=== PATIENT | male | born 1970 | race African-American/Black ===

== ENCOUNTER 2018-03-13 23:31 | Inpatient (IN) | payer SELFPAY ==
[2018-03-13 23:31] VITALS: O2SAT 100
[~2018-03-13 23:31] MED LIST: Z.0.NO CURRENT MEDS
[2018-03-13] MEDS ORDERED: ETOMIDATE 20 MG/10 ML VIAL ONE (23:37)
[2018-03-13] MEDS ORDERED: PROPOFOL 1000 MG/100 ML INJ 100 ML ONE (23:40)
[2018-03-13 23:45] VITALS: O2SAT 100
[2018-03-13 23:53] LABS: AUTOMATED NEUTROPHIL # 2.6 TH/MM3 (1.8-7.7); BASOPHIL % 0.8 % (0.0-2.0); EOSINOPHIL # 0.2 TH/MM3 (0-0.4); EOSINOPHIL % 2.8 % (0.0-4.0); HEMATOCRIT 43.2 % (39.0-51.0); HEMOGLOBIN 14.5 GM/DL (13.0-17.0); LYMPH % 51.4 % (9.0-44.0); LYMPHOCYTE # 3.4 TH/MM3 (1.0-4.8); MEAN CELL VOLUME 96.1 FL (80.0-100.0); MEAN CORPUSCULAR HEMOGLOBIN 32.3 PG (27.0-34.0); MEAN CORPUSCULAR HGB CONC 33.7 % (32.0-36.0); MEAN PLATELET VOLUME 7.3 FL (7.0-11.0); MONOCYTE # 0.3 TH/MM3 (0-0.9); PLATELET COUNT 224 TH/MM3 (150-450); RED BLOOD COUNT 4.49 MIL/MM3 (4.50-5.90); WHITE BLOOD COUNT 6.6 TH/MM3 (4.0-11.0)
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
[2018-03-14] VITALS (21 sets, daily range): BP systolic 115–129; BP diastolic 68–78; PULSE 79–92; RESP 16–23; TEMP 99.3–100.9; O2SAT 96–100
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
[2018-03-14] MEDS ORDERED: IOHEXOL 350 MG/ML 10 ML VIAL (for RAD DIAG) IVCONTRAST ONE (00:07)
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
--- NOTE | 2018-03-14 00:11 | RADRPT ---
EXAM DATE/TIME: 03/13/2018 23:33 [facility] COMPARISON: No previous studies available for comparison. INDICATIONS : Post intubation MEDICAL HISTORY : Unobtainable SURGICAL HISTORY : Unobtainable ENCOUNTER: Initial ACUITY: 1 day PAIN SCORE: Non-responsive. LOCATION: Bilateral chest FINDINGS: A single view of the chest demonstrates the lungs to be symmetrically aerated without evidence of mas s, infiltrate or effusion. Endotracheal tube 6 cm above the roger. The cardiomediastinal contours a re unremarkable. Osseous structures are intact. CONCLUSION: No acute disease. Endotracheal tube 6 cm above the roger. Rohit Tabares MD on March 14, 2018 at 0:09 Board Certified Radiologist. This report was verified electronically.
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
[2018-03-14] MEDS ORDERED: ENALAPRILAT 1.25 MG/ML VIAL IV PUSH PRN (00:15)
[2018-03-14] MEDS ORDERED: SODIUM CHLORIDE 0.9% FLUSH 10 ML FLUSH IV FLUSH PRN (00:15)
[2018-03-14] MEDS ORDERED: MAGNESIUM HYDROXIDE SUSP 30 ML CUP PO PRN (00:15)
[2018-03-14] MEDS ORDERED: NURSING INFORMATION XX SCH (00:15)
[2018-03-14] MEDS ORDERED: CHLORHEXIDINE GLUCONATE 2 % 1 PACK (2 CLOTHS) TOP PRN (00:15)
[2018-03-14] MEDS ORDERED: ONDANSETRON HCL 4 MG/2 ML VIAL IV PUSH PRN (00:15)
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
[2018-03-14] MEDS: SODIUM CHLOR 0.9% 1000 ML INJ 1,000 ML IV SCH ×3 (01:25→20:15)
[2018-03-14] MEDS ORDERED: fentaNYL DRIP 250 ML IV PRN (01:30)
[2018-03-14] MEDS ORDERED: NEED HT & WT SCH (01:30)
[2018-03-14] MEDS ORDERED: PROPOFOL 1000 MG/100 ML INJ 100 ML IV PRN (01:30)
[2018-03-14] MEDS ORDERED: fentaNYL 2,500 MCG/NS 250 ML IV PRN (01:45)
[2018-03-14] MEDS: PANTOPRAZOLE SODIUM 40 MG VIAL IVP SCH (01:54)
[2018-03-14] MEDS: levETIRAcetam INJ 500 MG in SODIUM CHLORIDE 0.9% INJ 100 ML IV SCH ×3 (01:55→22:03)
[2018-03-14] MEDS: CHLORHEXIDINE GLUCONATE 2 % 1 PACK (2 CLOTHS) TOP SCH (03:19)
[2018-03-14] MEDS: MULTIVITAMIN INJ 10 ML, THIAMINE INJ 100 MG, FOLIC ACID INJ 1 MG in SODIUM CHLORID 0.9%... IV SCH (03:19)
[2018-03-14] MEDS: PROPOFOL 1000 MG/100 ML IV PRN ×3 (07:00→22:03)
[2018-03-14] MEDS ORDERED: POTASSIUM PHOSPHATE MONOBASIC 500 MG TAB PO PRN (07:15)
[2018-03-14] MEDS ORDERED: POTASSIUM PHOSPHATE INJ 30 MMOL in SODIUM CHLOR 0.9% 250 ML INJ 250 ML IV PRN (07:15)
[2018-03-14] MEDS ORDERED: RESP: ALBUTEROL 2.5 MG/IPRATROPIUM 0.5 MG NEB (PRN) NEB (07:15)
[2018-03-14] MEDS ORDERED: MAGNESIUM SULFATE INJ 4 GM in SODIUM CHLORIDE 0.9% INJ 92 ML IV PRN (07:15)
[2018-03-14] MEDS ORDERED: SODIUM PHOSPHATE INJ 30 MMOL in SODIUM CHLOR 0.9% 250 ML INJ 240 ML IV PRN (07:15)
[2018-03-14] MEDS ORDERED: MAGNESIUM OXIDE 400 MG TAB PO PRN (07:15)
[2018-03-14] MEDS ORDERED: POTASSIUM CHLORIDE 25 MEQ EFFERVESCENT TAB PO PRN ×2 (07:15)
[2018-03-14] MEDS ORDERED: MAGNESIUM SULFATE INJ 2 GM in SODIUM CHLORIDE 0.9% INJ 96 ML IV PRN (07:15)
[2018-03-14] MEDS ORDERED: POTASSIUM CHLOR 40 MEQ PREMIX 100 ML IV PRN ×2 (07:15)
[2018-03-14] MEDS ORDERED: POTASSIUM PHOSPHATE MONOBASIC 500 MG TAB PO/TUBE PRN (07:15)
[2018-03-14] MEDS ORDERED: POTASSIUM CHLOR 20 MEQ PREMIX 100 ML IV PRN ×2 (07:15)
[2018-03-14] MEDS: CHLORHEXIDINE 0.12% (ORAL KIT) 15 ML CUP MT SCH ×2 (08:00→20:00)
[2018-03-14] MEDS: RESP: ALBUTEROL 2.5 MG/IPRATROPIUM 0.5 MG NEB (SCH) NEB ×3 (08:26→20:44)
[2018-03-14] MEDS: DOCUSATE SODIUM 50 MG/SENNA 8.6 MG TAB PO SCH ×2 (09:01→22:04)
[2018-03-14] MEDS: LIDOCAINE HCL 5% PATCH T-DERMAL SCH (09:02)
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
--- NOTE | 2018-03-14 10:17 | RADRPT ---
EXAM DATE/TIME: 03/14/2018 09:57 [facility] COMPARISON: CT BRAIN W/O CONTRAST, March 13, 2018, 23:35. INDICATIONS : Evaluate bleed RADIATION DOSE: 42.39 CTDIvol (mGy) MEDICAL HISTORY : None SURGICAL HISTORY : None. ENCOUNTER: Initial ACUITY: 1 day PAIN SCALE: Non-responsive LOCATION: cranial TECHNIQUE: Multiple contiguous axial images were obtained of the head. Using automated exposure control and adj ustment of the mA and/or kV according to patient size, radiation dose was kept as low as reasonably a chievable to obtain optimal diagnostic quality images. DICOM format image data is available electro nically for review and comparison. FINDINGS: CEREBRUM: There is some scattered areas of stable subarachnoid hemorrhage. Small left frontal subdural measurin g 5 mm unchanged . The ventricles are normal for age. No evidence of midline shift, mass lesion, he morrhage or acute infarction. No extra-axial fluid collections are seen. POSTERIOR FOSSA: The cerebellum and brainstem are intact. The 4th ventricle is midline. The cerebellopontine angle i s unremarkable. EXTRACRANIAL: The visualized portion of the orbits is intact. SKULL: The calvaria is intact. Stable sagittal occipital bone fracture. CONCLUSION: Stable areas of subarachnoid and a small left frontal subdural hematoma. No new hemorrhage is seen. Mono Calderón MD on March 14, 2018 at 10:13 Board Certified Radiologist. This report was verified electronically.
--- NOTE | 2018-03-14 10:19 | RADRPT ---
EXAM DATE/TIME: 03/14/2018 09:57 [facility] COMPARISON: CT ABDOMEN & PELVIS W CONTRAST, March 13, 2018, 23:35. INDICATIONS : Follow up on the pneumothorax. MEDICAL HISTORY : Unobtainable. SURGICAL HISTORY : Unobtainable. ENCOUNTER: Subsequent ACUITY: 1 day PAIN SCORE: Non-responsive. LOCATION: Bilateral chest FINDINGS: A single view of the chest demonstrates the endotracheal tube and nasogastric good position. Small le ft-sided pneumothorax with extensive subcutaneous air is noted.. The cardiomediastinal contours are unremarkable. There are innumerable left-sided rib fractures.. CONCLUSION: Left chest wall with subcutaneous air. Small left pneumothorax anteriorly. ET tube and NG tube in goo d position.. Mono Calderón MD on March 14, 2018 at 10:16 Board Certified Radiologist. This report was verified electronically.
[2018-03-14] MEDS: METHOCARBAMOL 500 MG TAB PO SCH ×2 (14:27→22:03)
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
[2018-03-15] VITALS (17 sets, daily range): BP systolic 114–156; BP diastolic 68–82; PULSE 73–100; RESP 16–28; TEMP 100–101.6; O2SAT 88–100
[2018-03-15] MEDS: PANTOPRAZOLE SODIUM 40 MG VIAL IVP SCH (00:15)
[2018-03-15] MEDS: PROPOFOL 1000 MG/100 ML IV PRN ×2 (02:25→07:05)
[2018-03-15] MEDS: RESP: ALBUTEROL 2.5 MG/IPRATROPIUM 0.5 MG NEB (SCH) NEB ×4 (03:02→20:53)
[2018-03-15] MEDS: CHLORHEXIDINE GLUCONATE 2 % 1 PACK (2 CLOTHS) TOP SCH (04:00)
[2018-03-15] MEDS: MULTIVITAMIN INJ 10 ML, THIAMINE INJ 100 MG, FOLIC ACID INJ 1 MG in SODIUM CHLORID 0.9%... IV SCH (04:29)
--- NOTE | 2018-03-15 04:48 | RADRPT ---
EXAM DATE/TIME: 03/15/2018 03:12 [facility] COMPARISON: CHEST SINGLE AP, March 14, 2018, 9:57. INDICATIONS : Follow up on the pneumothorax. MEDICAL HISTORY : Unobtainable. SURGICAL HISTORY : Unobtainable. ENCOUNTER: Subsequent ACUITY: 2 days PAIN SCORE: Non-responsive. LOCATION: Bilateral chest FINDINGS: Small left upper chest pneumothorax is 5 mm. No evidence of anterior pneumothorax on today's exam. Prominent subcutaneous emphysema about the left chest wall adjacent to multiple rib fractures similar to prior. There is persisting consolidation in the left lower lung with loss of delineation of the medial left hemidiaphragm. The right lung is clear. ET tube tip well above the roger. Gastric tub e traverses the [id number]. CONCLUSION: Residual 5 mm left upper chest pneumothorax. Persistent consolidation left lower lung. Maged Lucero MD on March 15, 2018 at 4:44 Board Certified Radiologist. This report was verified electronically.
[2018-03-15 05:48] LABS: ALBUMIN 3.2 GM/DL (3.4-5.0); BICARBONATE 26.3 MEQ/L (21.0-32.0); BLOOD UREA NITROGEN 11 MG/DL (7-18); CALCIUM 8.6 MG/DL (8.5-10.1); CHLORIDE 109 MEQ/L (98-107); CREATININE 1.08 MG/DL (0.60-1.30); GLOMERULAR FILTRATION RATE 89 ML/MIN (>89); GLUCOSE,RANDOM 113 MG/DL (74-106); SODIUM (NA) 143 MEQ/L (136-145)
[2018-03-15 05:50] LABS: ALT (GPT) 34 U/L (12-78); AST (GOT) 62 U/L (15-37)
[2018-03-15 05:52] LABS: ALKALINE PHOSPHATASE 69 U/L (45-117); TOTAL PROTEIN 6.6 GM/DL (6.4-8.2)
[2018-03-15] MEDS: METHOCARBAMOL 500 MG TAB PO SCH ×3 (06:00→20:24)
[2018-03-15] MEDS: SODIUM CHLOR 0.9% 1000 ML INJ 1,000 ML IV SCH ×2 (06:15→16:15)
[2018-03-15] MEDS: ACETAMINOPHEN 325 MG TAB NG PRN (07:05)
[2018-03-15] MEDS: CHLORHEXIDINE 0.12% (ORAL KIT) 15 ML CUP MT SCH ×2 (08:00→20:25)
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
[2018-03-15] MEDS: LIDOCAINE HCL 5% PATCH T-DERMAL SCH (08:56)
[2018-03-15] MEDS: DOCUSATE SODIUM 50 MG/SENNA 8.6 MG TAB PO SCH ×2 (08:56→20:24)
[2018-03-15] MEDS: MAGNESIUM HYDROXIDE SUSP 30 ML CUP PO SCH ×2 (08:56→20:23)
[2018-03-15] MEDS: levETIRAcetam INJ 500 MG in SODIUM CHLORIDE 0.9% INJ 100 ML IV SCH ×2 (08:56→20:23)
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
--- NOTE | 2018-03-15 09:26 | RADRPT ---
EXAM DATE/TIME: 03/15/2018 08:32 [facility] COMPARISON: No previous studies available for comparison. INDICATIONS : Swelling. MEDICAL HISTORY : Unobtainable. SURGICAL HISTORY : Unobtainable. ENCOUNTER: Initial ACUITY: 2 days PAIN SCORE: Non-responsive. LOCATION: Right Ankle. FINDINGS: Three view exam was performed of the right ankle. There is a transverse fracture of the medial malleo aimee at the level of the tibiotalar joint. It is minimally displaced. CONCLUSION: Transverse fracture at the base of the medial malleolus. Mono Calderón MD on March 15, 2018 at 9:22 Board Certified Radiologist. This report was verified electronically.
--- NOTE | 2018-03-15 09:28 | RADRPT ---
EXAM DATE/TIME: 03/15/2018 08:38 [facility] COMPARISON: No previous studies available for comparison. INDICATIONS : Swelling. MEDICAL HISTORY : Unobtainable. SURGICAL HISTORY : Unobtainable. ENCOUNTER: Initial ACUITY: 2 days PAIN SCORE: Non-responsive. LOCATION: Right Foot. FINDINGS: Three view examination of the right foot demonstrates no soft tissue swelling, dislocation, or fractu re. The tarsal bones appear intact. The interphalangeal and metatarsophalangeal joints are intact. The calcaneus is intact. Bony mineralization is normal. CONCLUSION: Unremarkable examination of the right foot. Mono Calderón MD on March 15, 2018 at 9:25 Board Certified Radiologist. This report was verified electronically.
[2018-03-15 09:59] LABS: HEMATOCRIT 33.5 % (39.0-51.0); HEMOGLOBIN 11.3 GM/DL (13.0-17.0); MEAN CELL VOLUME 95.3 FL (80.0-100.0); MEAN CORPUSCULAR HEMOGLOBIN 32.1 PG (27.0-34.0); MEAN CORPUSCULAR HGB CONC 33.7 % (32.0-36.0); MEAN PLATELET VOLUME 7.6 FL (7.0-11.0); PLATELET COUNT 148 TH/MM3 (150-450); RED BLOOD COUNT 3.51 MIL/MM3 (4.50-5.90); RED CELL DISTRIBUTION WIDTH 13.8 % (11.6-17.2); WHITE BLOOD COUNT 7.9 TH/MM3 (4.0-11.0)
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
[2018-03-15] MEDS: ACETAMINOPHEN 1000 MG/100 ML 100 ML IV PRN (20:22)
[2018-03-16] VITALS (11 sets, daily range): BP systolic 124–157; BP diastolic 61–85; PULSE 70–107; RESP 27–29; TEMP 99.9–102.4; O2SAT 94–100
[2018-03-16] MEDS: PANTOPRAZOLE SODIUM 40 MG VIAL IVP SCH (00:21)
[2018-03-16] MEDS: MULTIVITAMIN INJ 10 ML, THIAMINE INJ 100 MG, FOLIC ACID INJ 1 MG in SODIUM CHLORID 0.9%... IV SCH (02:12)
[2018-03-16] MEDS: SODIUM CHLOR 0.9% 1000 ML INJ 1,000 ML IV SCH ×2 (02:12→17:35)
[2018-03-16] MEDS: RESP: ALBUTEROL 2.5 MG/IPRATROPIUM 0.5 MG NEB (SCH) NEB ×3 (03:22→21:44)
[2018-03-16] MEDS: CHLORHEXIDINE GLUCONATE 2 % 1 PACK (2 CLOTHS) TOP SCH (03:49)
[2018-03-16] MEDS: ACETAMINOPHEN 1000 MG/100 ML 100 ML IV PRN ×3 (03:50→16:33)
--- NOTE | 2018-03-16 04:39 | RADRPT ---
EXAM DATE/TIME: 03/16/2018 03:24 [facility] COMPARISON: CHEST SINGLE AP, March 15, 2018, 3:12. INDICATIONS : Follow up on the pneumothorax. MEDICAL HISTORY : Unobtainable. SURGICAL HISTORY : Unobtainable. ENCOUNTER: Subsequent ACUITY: 4 - 6 days PAIN SCORE: Non-responsive. LOCATION: Bilateral chest FINDINGS: There are increasing bilateral lower lung consolidative infiltrates, now with loss of delineation of both hemidiaphragms. The upper lungs remain clear. No pleural reflection is seen in the left upper chest. Persistent subcutaneous emphysema about the lateral left chest wall. CONCLUSION: 1. No pneumothorax seen on this supine view. 2. Increasing bilateral lower lung consolidation.. Maged Lucero MD on March 16, 2018 at 4:35 Board Certified Radiologist. This report was verified electronically.
[2018-03-16 04:50] LABS: AUTOMATED NEUTROPHIL # 5.5 TH/MM3 (1.8-7.7); BASOPHIL % 0.2 % (0.0-2.0); EOSINOPHIL % 0.1 % (0.0-4.0); HEMOGLOBIN 11.1 GM/DL (13.0-17.0); LYMPH % 10.5 % (9.0-44.0); LYMPHOCYTE # 0.7 TH/MM3 (1.0-4.8); MEAN CORPUSCULAR HGB CONC 34.7 % (32.0-36.0); MEAN PLATELET VOLUME 8.4 FL (7.0-11.0); MONOCYTE # 0.3 TH/MM3 (0-0.9); NEUT % 84.2 % (16.0-70.0); PLATELET COUNT 135 TH/MM3 (150-450); RED BLOOD COUNT 3.37 MIL/MM3 (4.50-5.90); RED CELL DISTRIBUTION WIDTH 13.7 % (11.6-17.2); WHITE BLOOD COUNT 6.6 TH/MM3 (4.0-11.0)
[2018-03-16 05:19] LABS: ALBUMIN 2.6 GM/DL (3.4-5.0); AST (GOT) 71 U/L (15-37); BICARBONATE 23.9 MEQ/L (21.0-32.0); BLOOD UREA NITROGEN 10 MG/DL (7-18); CALCIUM 8.5 MG/DL (8.5-10.1); CHLORIDE 110 MEQ/L (98-107); CREATININE 1.17 MG/DL (0.60-1.30); GLOMERULAR FILTRATION RATE 81 ML/MIN (>89); GLUCOSE,RANDOM 116 MG/DL (74-106); SODIUM (NA) 143 MEQ/L (136-145)
[2018-03-16 05:22] LABS: ALKALINE PHOSPHATASE 65 U/L (45-117); ALT (GPT) 31 U/L (12-78); TOTAL PROTEIN 6.3 GM/DL (6.4-8.2)
[2018-03-16] MEDS: METHOCARBAMOL 500 MG TAB PO SCH ×3 (06:00→21:54)
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
[2018-03-16] MEDS ORDERED: MORPHINE SULFATE 2 MG/ML SYRINGE IV PUSH PRN (09:00)
[2018-03-16] MEDS: MAGNESIUM HYDROXIDE SUSP 30 ML CUP PO SCH ×2 (09:00→21:00)
[2018-03-16] MEDS: LIDOCAINE HCL 5% PATCH T-DERMAL SCH (09:36)
[2018-03-16] MEDS: levETIRAcetam INJ 500 MG in SODIUM CHLORIDE 0.9% INJ 100 ML IV SCH ×2 (09:36→21:54)
[2018-03-16] MEDS: DOCUSATE SODIUM 50 MG/SENNA 8.6 MG TAB PO SCH ×2 (10:31→21:54)
[2018-03-17] VITALS (14 sets, daily range): BP systolic 133–165; BP diastolic 72–91; PULSE 73–92; RESP 18–29; TEMP 98.5–101.7; O2SAT 94–100
[2018-03-17] MEDS: PANTOPRAZOLE SODIUM 40 MG VIAL IVP SCH (00:16)
[2018-03-17] MEDS: SODIUM CHLOR 0.9% 1000 ML INJ 1,000 ML IV SCH (00:16)
[2018-03-17] MEDS: ACETAMINOPHEN 1000 MG/100 ML 100 ML IV PRN ×3 (03:01→18:41)
[2018-03-17] MEDS: RESP: ALBUTEROL 2.5 MG/IPRATROPIUM 0.5 MG NEB (SCH) NEB ×4 (03:40→21:12)
[2018-03-17] MEDS: CHLORHEXIDINE GLUCONATE 2 % 1 PACK (2 CLOTHS) TOP SCH (04:00)
[2018-03-17 04:27] LABS: AUTOMATED NEUTROPHIL # 7.7 TH/MM3 (1.8-7.7); BASOPHIL % 0.2 % (0.0-2.0); HEMATOCRIT 31.7 % (39.0-51.0); HEMOGLOBIN 10.9 GM/DL (13.0-17.0); LYMPH % 7.4 % (9.0-44.0); LYMPHOCYTE # 0.7 TH/MM3 (1.0-4.8); MEAN CELL VOLUME 93.8 FL (80.0-100.0); MEAN CORPUSCULAR HEMOGLOBIN 32.2 PG (27.0-34.0); MEAN CORPUSCULAR HGB CONC 34.3 % (32.0-36.0); MEAN PLATELET VOLUME 8.2 FL (7.0-11.0); MONO % 5.4 % (0.0-8.0); MONOCYTE # 0.5 TH/MM3 (0-0.9); PLATELET COUNT 165 TH/MM3 (150-450); RED BLOOD COUNT 3.37 MIL/MM3 (4.50-5.90); RED CELL DISTRIBUTION WIDTH 13.4 % (11.6-17.2); WHITE BLOOD COUNT 8.8 TH/MM3 (4.0-11.0)
[2018-03-17 04:51] LABS: ALBUMIN 2.2 GM/DL (3.4-5.0); ALT (GPT) 26 U/L (12-78); AST (GOT) 46 U/L (15-37); BICARBONATE 22.3 MEQ/L (21.0-32.0); BLOOD UREA NITROGEN 12 MG/DL (7-18); CALCIUM 8.3 MG/DL (8.5-10.1); CHLORIDE 111 MEQ/L (98-107); CREATININE 1.08 MG/DL (0.60-1.30); GLOMERULAR FILTRATION RATE 89 ML/MIN (>89); GLUCOSE,RANDOM 117 MG/DL (74-106); SODIUM (NA) 143 MEQ/L (136-145)
[2018-03-17 04:54] LABS: ALKALINE PHOSPHATASE 68 U/L (45-117); TOTAL BILIRUBIN ADULT 0.9 MG/DL (0.2-1.0); TOTAL PROTEIN 6.3 GM/DL (6.4-8.2)
--- NOTE | 2018-03-17 05:01 | RADRPT ---
EXAM DATE/TIME: 03/17/2018 03:09 [facility] COMPARISON: CHEST SINGLE AP, March 16, 2018, 3:24. INDICATIONS : Shortness of breath. MEDICAL HISTORY : Non-responsive SURGICAL HISTORY : Non-responsive ENCOUNTER: Subsequent ACUITY: 4 - 6 days PAIN SCORE: Non-responsive. LOCATION: Bilateral chest FINDINGS: There is persistent consolidation in the left lower lobe, slightly smaller than on prior exam. Persi stent hazy opacity right mid and lower lung the possibility of right hemidiaphragm. No pneumothorax seen. Stable subcutaneous emphysema about the left chest wall and stable left lateral rib fractures. CONCLUSION: Consolidation left lower lung is slightly smaller than prior. Persistent hazy opacity in the right h emithorax, stable. Maged Lucero MD on March 17, 2018 at 4:57 Board Certified Radiologist. This report was verified electronically.
[2018-03-17] MEDS: METHOCARBAMOL 500 MG TAB PO SCH ×3 (05:40→22:19)
[2018-03-17] MEDS: MAGNESIUM HYDROXIDE SUSP 30 ML CUP PO SCH ×2 (08:30→19:50)
[2018-03-17] MEDS: DOCUSATE SODIUM 50 MG/SENNA 8.6 MG TAB PO SCH ×2 (08:30→19:50)
[2018-03-17] MEDS: LIDOCAINE HCL 5% PATCH T-DERMAL SCH (08:30)
[2018-03-17] MEDS: levETIRAcetam INJ 500 MG in SODIUM CHLORIDE 0.9% INJ 100 ML IV SCH ×2 (08:30→19:49)
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
[2018-03-18] VITALS (7 sets, daily range): BP systolic 131–144; BP diastolic 70–85; PULSE 87–95; RESP 22–34; TEMP 97.9–101.3; O2SAT 92–95
[2018-03-18] MEDS: PANTOPRAZOLE SODIUM 40 MG VIAL IVP SCH (00:32)
[2018-03-18] MEDS: RESP: ALBUTEROL 2.5 MG/IPRATROPIUM 0.5 MG NEB (SCH) NEB ×2 (03:23→09:38)
[2018-03-18] MEDS: CHLORHEXIDINE GLUCONATE 2 % 1 PACK (2 CLOTHS) TOP SCH (03:26)
[2018-03-18] MEDS: METHOCARBAMOL 500 MG TAB PO SCH ×3 (05:29→22:55)
[2018-03-18] MEDS ORDERED: LACTULOSE SYRUP 20 GM/30 ML CUP PO ONE (07:30)
[2018-03-18 07:57] LABS: AUTOMATED NEUTROPHIL # 9.4 TH/MM3 (1.8-7.7); BASOPHIL % 0.3 % (0.0-2.0); EOSINOPHIL % 0.4 % (0.0-4.0); HEMATOCRIT 32.1 % (39.0-51.0); HEMOGLOBIN 10.9 GM/DL (13.0-17.0); LYMPH % 6.6 % (9.0-44.0); LYMPHOCYTE # 0.7 TH/MM3 (1.0-4.8); MEAN CELL VOLUME 93.6 FL (80.0-100.0); MEAN CORPUSCULAR HEMOGLOBIN 31.8 PG (27.0-34.0); MEAN PLATELET VOLUME 7.9 FL (7.0-11.0); MONO % 8.2 % (0.0-8.0); MONOCYTE # 0.9 TH/MM3 (0-0.9); NEUT % 84.5 % (16.0-70.0); PLATELET COUNT 213 TH/MM3 (150-450); RED BLOOD COUNT 3.43 MIL/MM3 (4.50-5.90); RED CELL DISTRIBUTION WIDTH 13.7 % (11.6-17.2); WHITE BLOOD COUNT 11.1 TH/MM3 (4.0-11.0)
[2018-03-18] MEDS: MAGNESIUM HYDROXIDE SUSP 30 ML CUP PO SCH ×2 (08:10→21:00)
[2018-03-18] MEDS: levETIRAcetam 500 MG TAB PO SCH ×2 (08:10→22:56)
[2018-03-18] MEDS: DOCUSATE SODIUM 50 MG/SENNA 8.6 MG TAB PO SCH ×2 (08:10→21:00)
[2018-03-18] MEDS: ACETAMINOPHEN 325 MG TAB NG PRN ×2 (08:10→15:40)
[2018-03-18] MEDS: FAMOTIDINE 20 MG TAB PO SCH ×2 (08:10→22:55)
[2018-03-18] MEDS: LIDOCAINE HCL 5% PATCH T-DERMAL SCH (08:11)
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
[2018-03-18 08:19] LABS: ALBUMIN 2.2 GM/DL (3.4-5.0); ALT (GPT) 28 U/L (12-78); AST (GOT) 37 U/L (15-37); BICARBONATE 22.9 MEQ/L (21.0-32.0); BLOOD UREA NITROGEN 16 MG/DL (7-18); CALCIUM 8.7 MG/DL (8.5-10.1); CHLORIDE 107 MEQ/L (98-107); CREATININE 1.18 MG/DL (0.60-1.30); GLOMERULAR FILTRATION RATE 80 ML/MIN (>89); GLUCOSE,RANDOM 87 MG/DL (74-106); SODIUM (NA) 140 MEQ/L (136-145)
[2018-03-18 08:21] LABS: ALKALINE PHOSPHATASE 80 U/L (45-117); TOTAL BILIRUBIN ADULT 0.8 MG/DL (0.2-1.0); TOTAL PROTEIN 6.8 GM/DL (6.4-8.2)
[2018-03-18] MEDS: QUEtiapine FUMARATE 25 MG TAB PO SCH ×2 (11:47→22:56)
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
[2018-03-19] VITALS (7 sets, daily range): BP systolic 109–145; BP diastolic 36–81; PULSE 92–103; RESP 19–20; TEMP 98.4–101.4; O2SAT 94–95
[2018-03-19] MEDS: ACETAMINOPHEN 325 MG TAB NG PRN ×2 (05:06→23:27)
[2018-03-19] MEDS: METHOCARBAMOL 500 MG TAB PO SCH ×3 (06:09→21:45)
[2018-03-19] MEDS: MAGNESIUM HYDROXIDE SUSP 30 ML CUP PO SCH ×2 (08:05→21:00)
[2018-03-19] MEDS: LIDOCAINE HCL 5% PATCH T-DERMAL SCH (08:06)
[2018-03-19] MEDS: levETIRAcetam 500 MG TAB PO SCH (08:06)
[2018-03-19] MEDS: QUEtiapine FUMARATE 25 MG TAB PO SCH ×2 (08:06→21:44)
[2018-03-19] MEDS: DOCUSATE SODIUM 50 MG/SENNA 8.6 MG TAB PO SCH ×2 (08:06→21:00)
[2018-03-19] MEDS: FAMOTIDINE 20 MG TAB PO SCH ×2 (08:06→21:44)
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
[2018-03-19] MEDS: ENOXAPARIN SODIUM 40 MG/0.4 ML SYRINGE SQ SCH (08:51)
--- NOTE | 2018-03-19 09:11 | RADRPT ---
EXAM DATE/TIME: 03/19/2018 08:40 [place] COMPARISON: CHEST SINGLE AP, March 17, 2018, 3:09. INDICATIONS : Short of breath, pulmonary contusion MEDICAL HISTORY : subdural and subarachnoid hemorrhage, occipital bone fracture SURGICAL HISTORY : Craniotomy. ENCOUNTER: Subsequent ACUITY: 4 - 6 days PAIN SCORE: Non-responsive. LOCATION: Bilateral chest FINDINGS: The heart size is within normal image. There is hazy density seen at the lower lungs bilaterally. The mid and upper lungs are grossly clear. There is minimal residual left subcutaneous emphysema. Lower left rib fractures are seen. CONCLUSION: 1. Bibasilar areas of consolidation or atelectasis which appear to be improving. 2. Improving subcutaneous emphysema in the left side. 3. Left rib fractures. Champ Irby MD on March 19, 2018 at 9:08 Board Certified Radiologist. This report was verified electronically.
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
[2018-03-19 12:46] LABS: BILIRUBIN, URINE NEG (NEG); BLOOD, URINE NEG (NEG); GLUCOSE,URINE NEG (NEG); KETONE, URINE NEG (NEG); MUCUS URINE FEW /lpf (OCC); NITRITE,URINE NEG (NEG); PH, URINE 6.5 (5.0-8.5); URINE COLOR YELLOW (YELLW/STRAW); URINE LEUKOCYTE ESTERASE NEG (NEG)
[2018-03-20] VITALS: BP 130/61; PULSE 86; RESP 19; TEMP 101; O2SAT 95
[2018-03-20 04:00] VITALS: TEMP 101.3
[2018-03-20] MEDS: METHOCARBAMOL 500 MG TAB PO SCH ×3 (05:59→21:09)
[2018-03-20] MEDS: ACETAMINOPHEN 325 MG TAB NG PRN ×2 (05:59→17:38)
[2018-03-20 08:00] VITALS: BP 136/70; PULSE 78; RESP 18; TEMP 99.8; O2SAT 93
[2018-03-20 08:50] LABS: AUTOMATED NEUTROPHIL # 10.8 TH/MM3 (1.8-7.7); BASOPHIL # 0.1 TH/MM3 (0-0.2); BASOPHIL % 0.6 % (0.0-2.0); EOSINOPHIL # 0.2 TH/MM3 (0-0.4); EOSINOPHIL % 1.5 % (0.0-4.0); HEMATOCRIT 32.7 % (39.0-51.0); HEMOGLOBIN 11.1 GM/DL (13.0-17.0); LYMPH % 8.1 % (9.0-44.0); LYMPHOCYTE # 1.1 TH/MM3 (1.0-4.8); MEAN CELL VOLUME 93.5 FL (80.0-100.0); MEAN CORPUSCULAR HEMOGLOBIN 31.8 PG (27.0-34.0); MEAN CORPUSCULAR HGB CONC 34.1 % (32.0-36.0); MEAN PLATELET VOLUME 7.5 FL (7.0-11.0); MONO % 9.7 % (0.0-8.0); MONOCYTE # 1.3 TH/MM3 (0-0.9); NEUT % 80.1 % (16.0-70.0); PLATELET COUNT 361 TH/MM3 (150-450); RED BLOOD COUNT 3.49 MIL/MM3 (4.50-5.90); RED CELL DISTRIBUTION WIDTH 13.9 % (11.6-17.2); WHITE BLOOD COUNT 13.5 TH/MM3 (4.0-11.0)
[2018-03-20] MEDS: MAGNESIUM HYDROXIDE SUSP 30 ML CUP PO SCH ×2 (09:20→21:00)
[2018-03-20] MEDS: FAMOTIDINE 20 MG TAB PO SCH ×2 (09:21→21:08)
[2018-03-20] MEDS: ENOXAPARIN SODIUM 40 MG/0.4 ML SYRINGE SQ SCH (09:22)
[2018-03-20] MEDS: DOCUSATE SODIUM 50 MG/SENNA 8.6 MG TAB PO SCH ×2 (09:22→21:08)
[2018-03-20] MEDS: QUEtiapine FUMARATE 25 MG TAB PO SCH ×2 (09:23→21:08)
[2018-03-20] MEDS: LIDOCAINE HCL 5% PATCH T-DERMAL SCH (09:23)
[2018-03-20 09:26] LABS: BICARBONATE 24.1 MEQ/L (21.0-32.0); CALCIUM 9.1 MG/DL (8.5-10.1); CREATININE 1.27 MG/DL (0.60-1.30)
[2018-03-20 09:45] LABS: BANDS 11 % (0-6); LYMPHOCYTES 8 % (9-44); METAMYELOCYTES 1 % (0-1); MONOCYTES 7 % (0-8); MYELOCYTES 1 % (0-0); NEUTROPHIL # MANUAL DIFF 10.5 TH/MM3 (1.8-7.7); POLYS (SEG NEUTROPHILS) 65 % (16-70)
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
[2018-03-20 12:00] VITALS: BP 127/75; PULSE 85; RESP 17; TEMP 98.9; O2SAT 94
[2018-03-20 16:00] VITALS: BP 137/63; PULSE 85; RESP 18; TEMP 101.2; O2SAT 94
[2018-03-20 20:00] VITALS: BP 133/69; PULSE 100; RESP 18; TEMP 99.3; O2SAT 94
[2018-03-21] VITALS: BP 130/69; PULSE 100; RESP 18; TEMP 98.1; O2SAT 95
[2018-03-21] MEDS: METHOCARBAMOL 500 MG TAB PO SCH ×3 (05:40→19:49)
[2018-03-21 08:00] VITALS: BP 127/77; PULSE 93; RESP 19; TEMP 100.1; O2SAT 92
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
[2018-03-21] MEDS: FAMOTIDINE 20 MG TAB PO SCH ×2 (09:48→19:47)
[2018-03-21] MEDS: ENOXAPARIN SODIUM 40 MG/0.4 ML SYRINGE SQ SCH (09:48)
[2018-03-21] MEDS: DOCUSATE SODIUM 50 MG/SENNA 8.6 MG TAB PO SCH ×2 (09:48→19:47)
[2018-03-21] MEDS: QUEtiapine FUMARATE 25 MG TAB PO SCH ×2 (09:48→19:47)
[2018-03-21] MEDS: MAGNESIUM HYDROXIDE SUSP 30 ML CUP PO SCH ×2 (09:48→19:51)
[2018-03-21] MEDS: LIDOCAINE HCL 5% PATCH T-DERMAL SCH (09:49)
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
[2018-03-21 12:00] VITALS: BP 122/71; PULSE 100; RESP 15; TEMP 99.9; O2SAT 94
[2018-03-21] MEDS ORDERED: MAGN30S PO (15:07)
[2018-03-21] MEDS ORDERED: PERI PO (15:07)
[2018-03-21 16:00] VITALS: BP 123/66; PULSE 92; RESP 19; TEMP 100.5; O2SAT 93
[2018-03-21 20:00] VITALS: BP 122/73; PULSE 98; RESP 22; TEMP 100.7; O2SAT 95
[2018-03-22 01:26] VITALS: TEMP 99.3
[2018-03-22 02:56] LABS: AUTOMATED NEUTROPHIL # 11.9 TH/MM3 (1.8-7.7); BASOPHIL # 0.1 TH/MM3 (0-0.2); BASOPHIL % 0.4 % (0.0-2.0); EOSINOPHIL # 0.3 TH/MM3 (0-0.4); EOSINOPHIL % 1.7 % (0.0-4.0); HEMATOCRIT 31.7 % (39.0-51.0); HEMOGLOBIN 11.1 GM/DL (13.0-17.0); LYMPH % 8.7 % (9.0-44.0); LYMPHOCYTE # 1.3 TH/MM3 (1.0-4.8); MEAN CELL VOLUME 92.6 FL (80.0-100.0); MEAN CORPUSCULAR HEMOGLOBIN 32.6 PG (27.0-34.0); MEAN CORPUSCULAR HGB CONC 35.2 % (32.0-36.0); MEAN PLATELET VOLUME 7.6 FL (7.0-11.0); MONO % 8.1 % (0.0-8.0); MONOCYTE # 1.2 TH/MM3 (0-0.9); NEUT % 81.1 % (16.0-70.0); PLATELET COUNT 525 TH/MM3 (150-450); RED BLOOD COUNT 3.42 MIL/MM3 (4.50-5.90); RED CELL DISTRIBUTION WIDTH 14.1 % (11.6-17.2); WHITE BLOOD COUNT 14.6 TH/MM3 (4.0-11.0)
[2018-03-22] MEDS: METHOCARBAMOL 500 MG TAB PO SCH ×3 (06:09→20:07)
[2018-03-22 08:00] VITALS: BP 106/60; PULSE 88; RESP 19; TEMP 99; O2SAT 95
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
[2018-03-22 08:44] VITALS: O2SAT 95
[2018-03-22] MEDS: ENOXAPARIN SODIUM 40 MG/0.4 ML SYRINGE SQ SCH (10:32)
[2018-03-22] MEDS: FAMOTIDINE 20 MG TAB PO SCH ×2 (10:32→20:07)
[2018-03-22] MEDS: MAGNESIUM HYDROXIDE SUSP 30 ML CUP PO SCH ×2 (10:32→20:10)
[2018-03-22] MEDS: QUEtiapine FUMARATE 25 MG TAB PO SCH ×2 (10:33→20:07)
[2018-03-22] MEDS: DOCUSATE SODIUM 50 MG/SENNA 8.6 MG TAB PO SCH ×2 (10:33→20:08)
[2018-03-22] MEDS: LIDOCAINE HCL 5% PATCH T-DERMAL SCH (10:34)
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
--- NOTE | 2018-03-22 11:25 | RADRPT ---
EXAM DATE/TIME: 03/22/2018 11:04 [facility] COMPARISON: CHEST SINGLE AP, March 19, 2018, 8:40. INDICATIONS : Cough SURGICAL HISTORY : Craniotomy. ENCOUNTER: Subsequent ACUITY: 2 weeks PAIN SCORE: 0/10 LOCATION: Bilateral chest FINDINGS: Improvement with less airspace disease in the basces. There is no pneumothorax. Minimal subcutaneou s emphysema left side of the chest. CONCLUSION: Interval improvement. Ishan Duran MD FACR on March 22, 2018 at 11:22 Board Certified Radiologist. This report was verified electronically.
[2018-03-22 12:00] VITALS: BP 138/79; PULSE 88; RESP 19; TEMP 99; O2SAT 95
[2018-03-22 16:00] VITALS: BP 107/65; PULSE 97; RESP 18; TEMP 99.4; O2SAT 95
[2018-03-22 20:00] VITALS: BP 114/70; PULSE 82; RESP 18; TEMP 99.9; O2SAT 95
[2018-03-23 04:03] VITALS: BP 115/59; PULSE 90; RESP 20; TEMP 99.5; O2SAT 94
[2018-03-23 04:18] LABS: AUTOMATED NEUTROPHIL # 10.1 TH/MM3 (1.8-7.7); BASOPHIL # 0.1 TH/MM3 (0-0.2); BASOPHIL % 0.7 % (0.0-2.0); EOSINOPHIL # 0.2 TH/MM3 (0-0.4); EOSINOPHIL % 1.5 % (0.0-4.0); HEMATOCRIT 34.6 % (39.0-51.0); HEMOGLOBIN 11.7 GM/DL (13.0-17.0); LYMPH % 11.2 % (9.0-44.0); LYMPHOCYTE # 1.4 TH/MM3 (1.0-4.8); MEAN CORPUSCULAR HEMOGLOBIN 31.4 PG (27.0-34.0); MEAN CORPUSCULAR HGB CONC 33.8 % (32.0-36.0); MEAN PLATELET VOLUME 7.5 FL (7.0-11.0); NEUT % 78.6 % (16.0-70.0); PLATELET COUNT 691 TH/MM3 (150-450); RED BLOOD COUNT 3.72 MIL/MM3 (4.50-5.90); RED CELL DISTRIBUTION WIDTH 14.2 % (11.6-17.2); WHITE BLOOD COUNT 12.8 TH/MM3 (4.0-11.0)
[2018-03-23 04:36] LABS: BICARBONATE 24.4 MEQ/L (21.0-32.0); CALCIUM 9.3 MG/DL (8.5-10.1); CREATININE 1.19 MG/DL (0.60-1.30)
[2018-03-23] MEDS: METHOCARBAMOL 500 MG TAB PO SCH ×3 (06:00→21:41)
[2018-03-23 08:00] VITALS: BP 116/70; PULSE 90; RESP 16; TEMP 98.9; O2SAT 94
[2018-03-23] MEDS: MAGNESIUM HYDROXIDE SUSP 30 ML CUP PO SCH ×2 (09:40→21:41)
[2018-03-23] MEDS: QUEtiapine FUMARATE 25 MG TAB PO SCH ×2 (09:40→21:41)
[2018-03-23] MEDS: FAMOTIDINE 20 MG TAB PO SCH ×2 (09:40→21:41)
[2018-03-23] MEDS: ENOXAPARIN SODIUM 40 MG/0.4 ML SYRINGE SQ SCH (09:41)
[2018-03-23] MEDS: LIDOCAINE HCL 5% PATCH T-DERMAL SCH (09:41)
[2018-03-23] MEDS: DOCUSATE SODIUM 50 MG/SENNA 8.6 MG TAB PO SCH ×2 (09:42→21:00)
[2018-03-23 10:04] VITALS: O2SAT 94
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
[2018-03-23 12:00] VITALS: BP 140/71; PULSE 98; RESP 16; TEMP 99.2; O2SAT 93
[2018-03-23 16:00] VITALS: BP 107/60; PULSE 106; RESP 16; TEMP 98.6; O2SAT 95
[2018-03-23 20:00] VITALS: BP 105/57; PULSE 96; RESP 18; TEMP 98.8; O2SAT 94
[2018-03-23] MEDS ORDERED: LORazepam 2 MG/ML VIAL IV ONE (20:30)
[2018-03-23] MEDS: NICOTINE 21 MG/24 HR PATCH T-DERMAL SCH (21:40)
[2018-03-24] VITALS: BP 125/72; PULSE 95; RESP 18; TEMP 97.6; O2SAT 96
[2018-03-24] MEDS: METHOCARBAMOL 500 MG TAB PO SCH (04:36)
[2018-03-24 08:00] VITALS: BP 119/59; PULSE 81; RESP 15; TEMP 98; O2SAT 90
[2018-03-24] MEDS ORDERED: REMOVE OLD NICODERM (NICOTINE) PATCH T-DERMAL SCH (09:00)
[2018-03-24] MEDS: MAGNESIUM HYDROXIDE SUSP 30 ML CUP PO SCH (09:08)
[2018-03-24] MEDS: LIDOCAINE HCL 5% PATCH T-DERMAL SCH (09:08)
[2018-03-24] MEDS: ENOXAPARIN SODIUM 40 MG/0.4 ML SYRINGE SQ SCH (09:08)
[2018-03-24] MEDS: DOCUSATE SODIUM 50 MG/SENNA 8.6 MG TAB PO SCH (09:08)
[2018-03-24] MEDS: QUEtiapine FUMARATE 25 MG TAB PO SCH (09:08)
[2018-03-24] MEDS: FAMOTIDINE 20 MG TAB PO SCH (09:08)
[2018-03-24] MEDS: NICOTINE 21 MG/24 HR PATCH T-DERMAL SCH (09:10)
--- NOTE | 2018-03-24 09:34 | PD.ORT.PN ---
Subjective Subjective Remarks s/p right medial malleolus fx patient being noncompliant. he has removed his splint and has been fully wt bearing in work boots. states he needs to get a cigarette Objective Vitals Vital Signs Date Time Temp Pulse Resp B/P (MAP) Pulse Ox O2 Delivery O2 Flow Rate FiO2 03/24/18 00:00 97.6 95 18 125/72 (89) 96 03/23/18 20:00 98.8 96 18 105/57 (73) 94 03/23/18 16:00 98.6 106 16 107/60 (76) 95 03/23/18 12:00 99.2 98 16 140/71 (94) 93 03/23/18 10:04 94 21 I/O 03/23/18 03/23/18 03/23/18 03/24/18 03/24/18 03/24/18 07:00 15:00 23:00 07:00 15:00 23:00 Intake Total 240 ml 500 ml Output Total 400 ml Balance -160 ml 500 ml Intake Oral 240 ml 500 ml Output Urine Total 400 ml # Voids 4 # Bowel Movements 0 3 Result Diagram: 03/23/18 0343 03/23/18 0343 Imaging Last 24 hours Impressions Chest X-Ray 03/15/18 0000 Signed Impressions: Service Date/Time: Thursday, March 15, 2018 03:12 - CONCLUSION: Residual 5 mm left upper chest pneumothorax. Persistent consolidation left lower lung. Maged Lucero MD Objective Remarks RLE: ankle with minimal swelling. no splint present. moving ankle freely. nvi Assessment & Plan Assessment and Plan Multitrauma patient. Left hip greater trochanter fracture. Minimally displaced right medial malleolus fracture PLAN: patient being grossly noncompliant discussed with patient the importance of maintaining splint on right ankle and remaining non wt bearing. informed him of risks of wt bearing and potential surgical implications if fx shifts. orthotech to reapply splint today pt instructed to maintain splint at all times and to not remove NWB will inform Dr Paolo Major of issues with patient over weekend Obi Glover/First Bala BANGURA March 24, 2018 09:34
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
[2018-03-24 12:00] VITALS: BP_SYST 109; BP_SYST 95; BP_DIAS 56; BP_DIAS 61; PULSE 94; PULSE 95; RESP 15; RESP 16; TEMP 98.2; TEMP 98.5; O2SAT 96; O2SAT 98
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
[2018-03-24] MEDS ORDERED: SERO25TA PO (13:42)
[2018-03-24] MEDS ORDERED: ACET325T15 NG (13:42)
--- NOTE | 2018-03-24 13:45 | HHI.FF ---
Face to Face Verification Diagnosis: (1) Subarachnoid hemorrhage (2) Alcohol intoxication (3) Alcohol abuse (4) Pneumothorax (5) Adjustment disorder (6) Subdural hemorrhage (7) Altered mental status (8) Alcohol dependence in controlled environment (9) Mild major neurocognitive disorder due to traumatic brain injury with behavioral disturbance Physical Therapy Order: Evaluate and Treat, Improve ambulation, Strength and gait training Home Health Nursing Order: Medical education Signs/symptoms of disease process Medication education-adverse effect Nursing assessment with vital signs I have seen patient Shannan Acharya on 03/24/18. My clinical findings support the need for the requested home health care services because: Ltd mobility - disease progression Deconditioned w/ increased weakness Limited ability to care for self High risk of falls Infection w/ risk of complications I certify that my clinical findings support that this patient is homebound because: Post-op weakness Impaired cognitive ability/safety Unsteady gait/balance Unsafe to leave home unassisted Cni-[id number]-[id number] bed/chair Unable to use public transportation The exam, history, and the medical decision-making described in the above note were completed with the assistance of the mid-level provider. I reviewed and agree with the findings presented. I attest that I had a [id number] encounter with the patient on the same day, and personally performed and documented my assessment and findings in the medical record. Shayna Aguilar March 24, 2018 13:45 Caleb Bo MD March 24, 2018 14:35
[2018-03-24] MEDS ORDERED: WALKER WHEELS/F1 MIS (13:46)
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
== END 2018-03-24 14:59 | disposition left against medical advice (07) | DRG 964 ==
LOC: NEPI 23:31 → NEDA 23:58 → EDBD 23:58 → MERGE 23:58 → NEDA 03-14 00:21 → N03A 03-14 00:41 → N07A 03-17 21:36
PROVIDERS: ADMIT Surgery; ATTEND Surgery
PROC: 0HQ1XZZ Repair Face Skin, External Approach (ICD-10-PCS; principal; 2018-03-13)
PROC: 5A1945Z Respiratory Ventilation, 24-96 Consecutive Hours (ICD-10-PCS; 2018-03-13)
PROC: 0HQ0XZZ Repair Scalp Skin, External Approach (ICD-10-PCS; 2018-03-13)
PROC: 0BH17EZ Insertion of Endotracheal Airway into Trachea, Via Natural or Artificial Opening (ICD-10-PCS; 2018-03-13)
DX: S06.6X9A Traumatic subarachnoid hemorrhage with loss of consciousness of unspecified duration, initial encounter (principal); S27.0XXA Traumatic pneumothorax, initial encounter; S22.42XA Multiple fractures of ribs, left side, initial encounter for closed fracture; S72.112A Displaced fracture of greater trochanter of left femur, initial encounter for closed fracture; F02.81 Dementia in other diseases classified elsewhere, unspecified severity, with behavioral disturbance; S01.01XA Laceration without foreign body of scalp, initial encounter; J98.11 Atelectasis; S06.5X9A Traumatic subdural hemorrhage with loss of consciousness of unspecified duration, initial encounter; R40.2431 Glasgow coma scale score 3-8, in the field [EMT or ambulance]; F10.120 Alcohol abuse with intoxication, uncomplicated; Y90.8 Blood alcohol level of 240 mg/100 ml or more; S01.81XA Laceration without foreign body of other part of head, initial encounter; S02.119A Unspecified fracture of occiput, initial encounter for closed fracture; R41.89 Other symptoms and signs involving cognitive functions and awareness; S82.51XA Displaced fracture of medial malleolus of right tibia, initial encounter for closed fracture; F43.20 Adjustment disorder, unspecified; R45.87 Impulsiveness; V03.10XA Pedestrian on foot injured in collision with car, pick-up truck or van in traffic accident, initial encounter; Z91.19 Patient's noncompliance with other medical treatment and regimen; Z78.1 Physical restraint status
CPT/HCPCS: 12013; 31500; 36600; 70450; 70486; 71045; 71260; 72125; 72170; 73610; 73630; 74177; 80048; 80053; 80307; 81001; 82805; 84100; 85007; 85025; 85027; 85610; 85730; 86850; 86900; 86901; 87040; 87086; 87641; 90471; 94002; 94003; 94150; 94640; 94664; 94667; 94668; 96374; 96375; 99291; C9113; G0390; J0131; J1650; J1953; J3010; J3411; J7030; J7040; Q9967

== ENCOUNTER 2018-08-03 20:30 | Inpatient (IN) ==
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
[2018-08-03] MEDS ORDERED: HYDROmorphone PF Inj 1 MG/ML Ampul IV.PUSH PRN (22:13)
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
[2018-08-03 23:41] LABS: Calcium 9.1 mg/dL (8.5-10.1); Carbon Dioxide 23.6 meq/L (21.0-32.0); Potassium 4.1 meq/L (3.5-5.1)
[2018-08-04] MEDS ORDERED: Chlorhexidine Gluconate 2% 1 Pack (2 Cloths) TOPICAL PRN (04:00)
[2018-08-04] MEDS ORDERED: Chlorhexidine Gluconate 2% 1 Pack (2 Cloths) TOPICAL SCH (04:00)
[2018-08-04] MEDS ORDERED: Morphine Inj 4 MG/ML Vial IV.PUSH PRN (06:08)
[2018-08-04 06:54] LABS: Baso % (Auto) 0.8 % (0.0-2.0); Eos # (Auto) 0.1 th/mm3 (0.0-0.4); Eos % (Auto) 3.2 % (0.0-4.0); Hematocrit 43.9 % (39.0-51.0); Hemoglobin 14.7 gm/dL (13.0-17.0); Lymph # (Auto) 1.6 th/mm3 (1.0-4.8); Lymph % (Auto) 40.4 % (9.0-44.0); Mean Corpuscular HGB Conc 33.4 % (32.0-36.0); Mean Corpuscular Hemoglobin 32.2 pg (27.0-34.0); Mean Corpuscular Volume 96.3 fL (80.0-100.0); Mean Platelet Volume 7.5 fL (7.0-11.0); Mono # (Auto) 0.4 th/mm3 (0.0-0.9); Mono % (Auto) 9.3 % (0.0-8.0); Neut # (Auto) 1.9 th/mm3 (1.8-7.7); Neut % (Auto) 46.3 % (16.0-70.0); Platelet Count 195 th/mm3 (150-450); Red Blood Count 4.56 mil/mm3 (4.50-5.90); Red Cell Distribution Width 13.6 % (11.6-17.2); White Blood Count 4.1 th/mm3 (4.0-11.0)
[2018-08-04] MEDS: Folic Acid 1 MG Tablet PO SCH (08:50)
[2018-08-04] MEDS: Docusate Sodium 100 MG Capsule PO SCH ×2 (08:50→20:24)
[2018-08-04] MEDS: Senna/Docusate Sodium 8.6/50 MG Tablet PO SCH ×2 (08:50→20:24)
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
[2018-08-04 11:35] LABS: Baso % (Auto) 0.9 % (0.0-2.0); Eos # (Auto) 0.1 th/mm3 (0.0-0.4); Eos % (Auto) 2.5 % (0.0-4.0); Hematocrit 44.7 % (39.0-51.0); Hemoglobin 14.8 gm/dL (13.0-17.0); Lymph # (Auto) 1.7 th/mm3 (1.0-4.8); Lymph % (Auto) 41.9 % (9.0-44.0); Mean Corpuscular Hemoglobin 31.9 pg (27.0-34.0); Mean Corpuscular Volume 96.7 fL (80.0-100.0); Mean Platelet Volume 7.6 fL (7.0-11.0); Mono # (Auto) 0.4 th/mm3 (0.0-0.9); Mono % (Auto) 10.3 % (0.0-8.0); Neut # (Auto) 1.8 th/mm3 (1.8-7.7); Neut % (Auto) 44.4 % (16.0-70.0); Platelet Count 204 th/mm3 (150-450); Red Blood Count 4.62 mil/mm3 (4.50-5.90); Red Cell Distribution Width 13.5 % (11.6-17.2); White Blood Count 4.1 th/mm3 (4.0-11.0)
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
[2018-08-04] MEDS ORDERED: Metoprolol Tartrate 25 MG Tablet PO ONE (12:00)
[2018-08-04] MEDS ORDERED: Chlorhexidine Gluconate 2% 1 Pack (2 Cloths) TOPICAL ONE (12:00)
[2018-08-04] MEDS ORDERED: Sodium Chlor 0.9% Inj 500 ML IV.CONT ONE (12:00)
[2018-08-04] MEDS ORDERED: Lidocaine PF 1% Inj 5 ML Syringe OTHER ONE (12:02)
[2018-08-04] MEDS ORDERED: fentaNYL Citrate Inj 100 MCG/2 ML Ampul ONE (13:26)
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
[2018-08-05 03:37] LABS: Hematocrit 42.9 % (39.0-51.0); Hemoglobin 14.6 gm/dL (13.0-17.0); Mean Corpuscular HGB Conc 34.1 % (32.0-36.0); Mean Corpuscular Hemoglobin 32.5 pg (27.0-34.0); Mean Corpuscular Volume 95.5 fL (80.0-100.0); Mean Platelet Volume 7.7 fL (7.0-11.0); Platelet Count 204 th/mm3 (150-450); Red Blood Count 4.49 mil/mm3 (4.50-5.90); Red Cell Distribution Width 13.3 % (11.6-17.2); White Blood Count 6.9 th/mm3 (4.0-11.0)
[2018-08-05 04:18] LABS: Calcium 8.8 mg/dL (8.5-10.1); Carbon Dioxide 25.5 meq/L (21.0-32.0); Potassium 4.2 meq/L (3.5-5.1)
[2018-08-05 04:46] VITALS: RESP 16
[2018-08-05 05:27] VITALS: O2SAT 99
--- NOTE | 2018-08-05 08:44 | P.PNPOD ---
Subjective Interval history: Pain well-controlled no complaints of headache or vision changes Physical Exam Vital signs: Vital Signs 08/04/18 13:21 08/04/18 13:30 08/04/18 13:45 Temperature 97.5 F L Pulse Rate 74 64 64 Respiratory Rate 15 15 15 Blood Pressure 141/92 H 153/89 H 154/82 H Pulse Oximetry 100 100 100 08/04/18 14:00 08/04/18 14:15 08/04/18 16:00 Temperature 97.8 F Pulse Rate 59 L 59 L 81 Respiratory Rate 16 16 20 Blood Pressure 156/88 H 153/89 H 137/72 Pulse Oximetry 100 100 99 08/04/18 20:00 08/04/18 23:05 08/05/18 00:00 Temperature 98.6 F 98.2 F Pulse Rate 73 72 Respiratory Rate 18 18 18 Blood Pressure 139/67 136/80 Pulse Oximetry 98 98 08/05/18 04:00 08/05/18 04:46 Temperature 98.1 F Pulse Rate 78 Respiratory Rate 16 16 Blood Pressure 158/84 H Pulse Oximetry 99 Intake & Output 08/04/18 08/05/18 08/05/18 18:59 06:59 18:59 Intake Total 400 / 400 600 / 600 Output Total 431 / 431 Balance -31 / -31 600 / 600 Weight 78 kg Intake: Oral 600 / 600 Anesthesia Amount 400 / 400 Output: Urine 426 / 426 Estimated Blood Loss 5 / 5 Other: # Voids 3 Date of Last Bowel Movement 08/03/18 - Constitutional no acute distress - Neurological Alert and oriented x3 - Routine Extremities Exam Comments: Right lower extremity examined: Good capillary fill time. Sensation to the patient's foot and ankle, immobilized within splint, no strikethrough bandage. Medications and Allergies Active Medications: Active Medications Docusate Sodium (Colace) 100 mg PO BID [facility] Last Admin: 08/04/18 20:24 Dose: 100 mg Enalaprilat (Vasotec Inj) 1.25 mg IV.PUSH Q6H PRN PRN Reason: SBP>180, DBP>95 Folic Acid (Folic Acid) 1 mg PO DAILY [facility] Stop: 08/07/18 08:59 Last Admin: 08/04/18 08:50 Dose: 1 mg Lactated Ringer's (Lr 1000 Ml Inj) 1,000 mls @ 30 mls/hr IV.CONT .Q24H ONE Stop: 08/05/18 11:59 Miscellaneous Information ([facility] Nursing Information) 1 each OTHER UNSCH PRN PRN Reason: SEE LABEL COMMENTS Stop: 08/05/18 13:37 Morphine Sulfate (Morphine Inj) 4 mg IV.PUSH Q3HR PRN PRN Reason: BREAKTHROUGH PAIN Last Admin: 08/04/18 13:37 Dose: 4 mg Multivitamins (Theragran) 1 tab PO DAILY [facility] Stop: 08/07/18 08:59 Last Admin: 08/04/18 08:49 Dose: 1 tab Ondansetron HCl (Zofran Inj) 4 mg IV.PUSH Q6H PRN PRN Reason: NAUSEA OR VOMITING Oxycodone HCl (Roxicodone) 10 mg PO Q4H PRN PRN Reason: Pain 6-10 Last Admin: 08/05/18 04:07 Dose: 10 mg Oxycodone HCl (Roxicodone) 5 mg PO Q4H PRN PRN Reason: PAIN SCALE 4 TO 6 MODERATE Senna/Docusate Sodium (Jo-Ann-Colace) 1 tab PO BID [facility] Last Admin: 08/04/18 20:24 Dose: 1 tab Thiamine HCl (Vitamin B1) 100 mg PO DAILY [facility] Stop: 08/07/18 08:59 Last Admin: 08/04/18 08:49 Dose: 100 mg Allergies Allergy/AdvReac Type Severity Reaction Status Date / Time No Known Allergies Allergy Unknown Uncoded 03/14/18 18:59 Home Medications Medication Instructions Recorded Confirmed Type No Known Home Medications 08/03/18 08/03/18 History Results - Labs CBC & Chem 7: 08/05/18 02:40 08/05/18 02:40 Laboratory Results - last 24 hr 08/04/18 08/04/18 08/04/18 10:55 11:10 11:10 WBC 4.1 RBC 4.62 Hgb 14.8 Hct 44.7 MCV 96.7 MCH 31.9 MCHC 33.0 RDW 13.5 Plt Count 204 MPV 7.6 Neut % (Auto) 44.4 Lymph % (Auto) 41.9 [place] % (Auto) 10.3 H Eos % (Auto) 2.5 Baso % (Auto) 0.9 Neut # (Auto) 1.8 Lymph # (Auto) 1.7 [place] # (Auto) 0.4 Eos # (Auto) 0.1 Baso # (Auto) 0.0 WBC Differential . Differential Comment Auto diff final Sodium Potassium Chloride Carbon Dioxide Anion Gap BUN Creatinine Estimated GFR Random Glucose Calcium Nasal Screen MRSA (PCR) Not detected Blood Type O Positive Antibody Screen Negative 08/05/18 08/05/18 02:40 02:40 WBC 6.9 D RBC 4.49 L Hgb 14.6 Hct 42.9 MCV 95.5 MCH 32.5 MCHC 34.1 RDW 13.3 Plt Count 204 MPV 7.7 Neut % (Auto) Lymph % (Auto) [place] % (Auto) Eos % (Auto) Baso % (Auto) Neut # (Auto) Lymph # (Auto) [place] # (Auto) Eos # (Auto) Baso # (Auto) WBC Differential Differential Comment Sodium 139 Potassium 4.2 Chloride 106 Carbon Dioxide 25.5 Anion Gap 8 BUN 14 Creatinine 1.21 Estimated GFR 78 L Random Glucose 108 H Calcium 8.8 Nasal Screen MRSA (PCR) Blood Type Antibody Screen - Imaging Impressions Ankle X-Ray 08/04/18 00:00 CONCLUSION: Distal tibial screws with good alignment as detailed above. Assessment and Plan - Assessment (1) Closed right ankle fracture Code(s): S82.891A - Other fracture of right lower leg, initial encounter for closed fracture Status: Acute - Plan Status post ORIF per Dr. De La Rosa postop day 1. Doing well recommend anticoagulation for DVT prevention, nonweightbearing, keep bandage clean dry and intact, follow-up with Dr. De La Rosa 1 week, patient has Cam walking boot which he will bring to the first postop visit. Recommend oral antibiotics Keflex 500 mg 3 times daily 1 week. Discussed care with trauma team.
[2018-08-05] MEDS: Folic Acid 1 MG Tablet PO SCH (09:09)
[2018-08-05] MEDS: Senna/Docusate Sodium 8.6/50 MG Tablet PO SCH (09:10)
[2018-08-05] MEDS: Docusate Sodium 100 MG Capsule PO SCH (09:10)
[2018-08-05 09:47] VITALS: BP 136/90; PULSE 67; TEMP 98.5
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
== END 2018-08-05 10:35 | disposition home or self-care (01) ==
LOC: NEPE 20:30 → NEDA 22:05 → N05 23:22
PROVIDERS: ADMIT Surgery Trauma Surgery; ATTEND Surgery Trauma Surgery
PROC: ORIFCAL (2018-08-04 12:02)